=== PATIENT | male | born 1960 ===

== ENCOUNTER 2021-05-01 13:41 | Emergency (ER) | payer SELFPAY ==
[2021-05-01 14:05] VITALS: BP 139/85
[2021-05-01] MEDS ORDERED: MORPHINE 4 MG/1 ML INJ IV ONE (14:23)
[2021-05-01] MEDS ORDERED: ASPIRIN 81 MG TAB CHEW PO ONE (14:23)
--- NOTE | 2021-05-01 14:26 | Emergency Department Report ---
ED Chest Pain HPI - General Chief Complaint: Chest Pain Stated Complaint: CHEST PAIN,LIGHT HEADED Time Seen by Provider: 05/01/21 14:14 Source: patient Mode of arrival: Ambulatory Limitations: No Limitations - History of Present Illness Initial Comments: 61-year-old -[place] male presents to the emergency department with a complaint of some dizziness/lightheadedness, followed by left-sided chest pain with radiation down the left arm. The chest pain started about 1 hour prior to presentation. No known aggravating or alleviating factors. He denies any fever, shortness of breath, lower extremity swelling, nausea, vomiting or diaphoresis. Patient has a history of diabetes, hypertension. He is a tobacco smoker. He did not take anything for his symptoms prior to presentation but is compliant with his home medications. Severity scale (0 -10): 7 - Related Data Allergies Allergy/AdvReac Type Severity Reaction Status Date / Time No Known Allergies Allergy Unverified 05/01/21 14:02 Heart Score - HEART Score History: Moderately suspicious EKG: Non-specific Age: 45-65 Risk factors: > 3 risk factors or hx of atherosclerotic disease Troponin: < normal limit (The patient left AMA prior to blood work) HEART Score: 5 - EKG Read Time Time EKG Completed: 14:03 EKG Read Time: 14:04 ED Review of Systems ROS: Stated complaint: CHEST PAIN,LIGHT HEADED Other details as noted in HPI Comment: All other systems reviewed and negative Constitutional: denies: chills, fever Eyes: denies: eye pain, vision change ENT: denies: ear pain, throat pain Respiratory: denies: cough, shortness of breath Cardiovascular: chest pain. denies: palpitations Gastrointestinal: denies: abdominal pain, vomiting Genitourinary: denies: dysuria, discharge Musculoskeletal: denies: back pain, joint swelling Skin: denies: rash, lesions Neurological: other (dizziness/lightheaded). denies: headache, weakness ED Past Medical Hx - Past Medical History Previous Medical History?: Yes Hx Hypertension: Yes Hx Diabetes: Yes Hx of Cancer: Yes (prostate) - Surgical History Past Surgical History?: Yes Hx Appendectomy: Yes Additional Surgical History: Back ED Physical Exam - General Limitations: No Limitations - Other Other exam information: GENERAL: The patient is well-developed well-nourished. HENT: Normocephalic. Atraumatic. EYES: Extraocular motions are intact. NECK: Supple. Trachea is midline. CHEST/LUNGS: There is no respiratory distress noted. HEART/CARDIOVASCULAR: There is no tachycardia. ABDOMEN: Abdomen is soft, nontender. Patient has normal bowel sounds. SKIN: Skin is warm and dry. NEURO: The patient is awake, alert, and oriented. The patient is cooperative. Normal speech. MUSCULOSKELETAL: There is no tenderness or deformity. There is no limitation range of motion. ED Course Vital Signs 05/01/21 14:04 Temperature 97.8 F Pulse Rate 79 Respiratory 20 Rate Blood Pressure 139/85 [Right] O2 Sat by Pulse 97 Oximetry - Reevaluation(s) Reevaluation #1: 05/01/21 14:55 After I saw the patient in MSE #7, spoke with cardiology, and ordered a cardiac work-up, we got the patient back to room #18. As I went into place the patient on the monitor and blood pressure cuff, patient made note of an area of blood seen in the corner of the room and would look like footprints from a shoe on the floor. He felt that the room was not appropriately cleaned. I explained to him that we did clean the room but also were hurrying up to get the patient back on appropriate cardiac monitoring in the main emergency department. I offered to have environmental services come and clean the areas of concern and explained that the bed/gurney is clean with fresh sheets. At this point the patient says that he does not feel comfortable in this room or want to stay in this emergency department and is going to leave to go to another hospital. I explained to the patient that he presents with left-sided chest pain, has multiple risk factors for coronary artery disease, and needs further evaluation. Leaving at this time could lead to continued chest pain, undiagnosed or delayed diagnosis of AR, debility, or even . Patient is awake, alert, oriented, AAO x3, and has a normal decision-making capacity. Therefore, despite understanding the risks, the patient has signed out AGAINST MEDICAL ADVICE. He understands that he can return to this emergency department at any time if he changes his mind about evaluation or with any acute distress. However, it so unds like he is planning to go to another emergency department. - Consultations Consultation #1: 05/01/21 14:26 Spoke with the field organizer on-call, Dr. Orozco, and he took a look at the EKG. He says that it has more of an appearance of pericarditis and does not show a STEMI. MARIA D score - Maria D Score Age > 65: (0) No Aspirin use within the Past 7 Days: (1) Yes 3 or more CAD Risk Factors: (1) Yes 2 or more Angina events in past 24 hrs: (0) No Known CAD with more than 50% Stenosis: (0) No Elevated Cardiac Markers: (0) No (Patient left AMA prior to bloodwork) ST Deviation Greater than 0.5mm: (1) Yes MARIA D Score: 3 ED Medical Decision Making - EKG Data -: EKG Interpreted by Me EKG shows normal: sinus rhythm, axis, intervals, QRS complexes, ST-T waves (There are some mild ST elevations to the inferior leads, no reciprocal depressions) Rate: normal - EKG Data When compared to previous EKG there are: previous EKG unavailable Interpretation: other (Sinus rhythm, normal axis, normal intervals, mild ST elevations to the inferior leads without reciprocal depressions. No ST elevation AR.) - Radiology Data Radiology results: image reviewed interpreted by me: Chest x-ray does not show any acute process. There are no pleural effusions, obvious pneumonia and there is no pneumothorax. Moderate to severe scoliosis seen. No widened mediastinum. - Medical Decision Making This patient presented to the emergency department with a complaint of some dizziness/lightheadedness, followed by some left-sided chest pain with radiation down the left arm. As per the patient's EKG to sign and immediately went to see the patient in MSE #7. After doing an H&P, I then spoke with the field organizer who did not feel that the EKG was consistent with a STEMI. I went back and spoke with the patient and explained what will be his cardiac work-up. The patient went and had a chest x-ray that does not show any pneumonia, pleural effusions, pneumothorax, widened mediastinum, or any other acute process. There is moderate to severe scoliosis seen. While the patient was at x-ray I spoke to the charge nurse and was able to get the patient assigned to room #18 in the main emergency department, which is where he went di rectly from x-ray imaging. As soon as the patient arrived in room #[address] the patient on the monitor and discussed the x-ray findings. At this point the patient did not like the cleanliness of the room and made the decision that he wanted to leave the emergency department and go to another facility. Risks were discussed and the patient has normal decision-making capacity and has signed out AMA. Critical Care Time: No Critical care attestation.: If time is entered above; I have spent that time in minutes in the direct care of this critically ill patient, excluding procedure time. ED Disposition Clinical Impression: Chest pain Qualifiers: Chest pain type: unspecified Qualified Code(s): R07.9 - Chest pain, unspecified Disposition: 07 LEFT AGAINST MEDICAL ADVICE Is pt being admited?: No Additional Instructions: Return to the emergency department if you change your mind about further evaluation of your chest pain, or with any acute distress. Forms: AMA Form Time of Disposition: 15:34
--- NOTE | 2021-05-01 15:59 | XRay Report ---
CHEST 2 VIEWS INDICATION / CLINICAL INFORMATION: CP STUDY TIME: 1448 COMPARISON: None available. FINDINGS: SUPPORT DEVICES: None. HEART / MEDIASTINUM: No significant abnormality. LUNGS / PLEURA: No significant acute pulmonary or pleural abnormality. No pneumothorax. ADDITIONAL FINDINGS: Moderate thoracolumbar scoliosis is seen. Signer Name: Don Lee MD Signed: 05/01/2021 3:55 PM Workstation Name: [id number]
--- NOTE | 2021-05-02 10:28 | Electrocardiograph Report ---
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
== END 2021-05-01 15:49 | disposition left against medical advice (07) ==
LOC: ED 13:41
DX: R07.9 Chest pain, unspecified (principal); I10 Essential (primary) hypertension; E11.8 Type 2 diabetes mellitus with unspecified complications; Z90.89 Acquired absence of other organs; Z85.46 Personal history of malignant neoplasm of prostate
CPT/HCPCS: 71046; 93005; 99283